=== PATIENT | male | born 1970 | race Hispanic/Latino ===

== ENCOUNTER → 2019-02-16 | Day surgery (SDC) | payer OTHER ==
[2019-02-15 16:23] LABS: BASOPHILS % 0.6 % (0.0-1.0); EOSINOPHILS # (AUTO) 0.1 (0.0-0.4); EOSINOPHILS % 1.6 % (0.0-6.0); HEMATOCRIT 52.1 % (38.2-49.6); HEMOGLOBIN 16.8 g/dL (14.0-18.0); LYMPHOCYTES # (AUTO) 2.6 (1.0-3.2); LYMPHOCYTES % 36.7 % (18.0-39.1); MEAN CORPUSCULAR HEMOGLOBIN 31.2 pg (28-32); MEAN CORPUSCULAR HGB CONC 32.2 g/dL (31-35); MEAN CORPUSCULAR VOLUME 96.7 fL (81-99); MONOCYTES # (AUTO) 0.6 (0.2-0.8); MONOCYTES % 7.9 % (4.4-11.3); NEUTROPHILS # (AUTO) 3.8 (2.1-6.9); NEUTROPHILS % 52.9 % (38.7-80.0); PLATELET COUNT 200 x10e3/uL (140-360); RED BLOOD COUNT 5.39 x10e6/uL (4.3-5.7); RED CELL DISTRIBUTION WIDTH 12.4 % (11.7-14.4)
[2019-02-15 16:24] LABS: INR 0.93
[2019-02-15 16:34] LABS: ALANINE AMINOTRANSFERASE 43 IU/L (0-55); ALBUMIN 4.3 g/dL (3.5-5.0); ALBUMIN/GLOBULIN RATIO 1.1 (0.8-2.0); ALKALINE PHOSPHATASE 82 IU/L (40-150); ANION GAP 16.2 mmol/L (8-16); BLOOD UREA NITROGEN 14 mg/dL (7-26); BUN/CREATININE RATIO 15 (6-25); CALCIUM 9.9 mg/dL (8.4-10.2); CARBON DIOXIDE 25 mmol/L (22-29); CHLORIDE 101 mmol/L (98-107); CREATININE, SERUM 0.95 mg/dL (0.72-1.25); EST GLOMERULAR FILTRATION RATE > 60 ML/MIN (60-); GLUCOSE 82 mg/dL (74-118); POTASSIUM 4.2 mmol/L (3.5-5.1); SODIUM 138 mmol/L (136-145)
[2019-02-16] VITALS (17 sets, daily range): BP systolic 119–189; BP diastolic 63–119
[~2019-02-16] VITALS: Ht 180.3 cm; Wt 95.3 kg
[~2019-02-16] MED LIST: ASPIRIN 325 MG TAB ONE; ATORVASTATIN CA20 MG PO; CELEBREX100 MG PO; FENTANYL CITRATE/PF 100MCG/2 ML INJ ONE; HEPARIN SOD/SOD CHLORIDE 2,000 ML ONE; IOPAMIDOL 370 MG/ML 200 ML INFUS..BTL INJ ONE; LIDOCAINE HCL 2% LOCAL 20 ML VIAL ONE; MIDAZOLAM HCL 2 MG/2 ML VIAL ONE; SODIUM CHLORIDE 0.9% 1000ML 1,000 ML ONE; TICAGRELOR 90 MG TABLET ONE; VERAPAMIL HCL 2.5 MG/ML 2 ML VIAL ONE
--- OUTSIDE RECORDS SUMMARY | 2019-02-16 08:41 | XMS REPORT | Clinical Summary ---
Author Author ANDRA [facility] CenterMoqizone HoldingYak[facility] Organization [facility] Address Unknown Phone Unavailable Care Team Providers Care Ham Pumper Name Role Phone Carson Butcher PCP Allergies Comments Active Allergy Reactions Severity Noted Date As a kid Penicillins Other (See 10/11/2017 Comments) Medications End Date Status Medication Sig Dispensed Refills Start Date Active QUEtiapine (SEROQUEL) 100 Take 100 mg 0 MG tablet by mouth nightly. Active rivaroxaban (XARELTO) 10 Take 1 tablet 30 tablet 0 10/21/201 mg Tab tablet (10 mg total) 7 by mouth daily with dinner. Active apixaban (ELIQUIS) 5 mg Take 1 tablet 74 tablet 0 11/24/201 Tab tablet (5 mg total) 8 by mouth 2 (two) times daily Take 2 tablets twice a day for 7 days then 1 tablet twice a day.. Active Problems Problem Noted Date Osteoarthritis of right ankle, unspecified osteoarthritis type 10/21/2017 Osteoarthritis of right ankle 10/19/2017 Social History Date Tobacco Use Types Packs/Day Years Used Never Smoker Smokeless Tobacco: Never Used Alcohol Use Drinks/Week oz/Week Comments Yes 4 Cans of 2.4 beer Sex Assigned at Date Recorded Not on file Industry Job Start Date Occupation Not on file Not on file Not on file Travel End Travel History Travel Start No recent travel history available. Last Filed Vital Signs Not on file Plan of Treatment Not on file Implants Device Identifier Shelf Expiration Date Model / Serial / Lot Implanted Type Area Manufactur er 10/03/[id number] / / [id number] Inbone Tibial Top Stem Plasma [place] Right: Ankle EDDI GONZALES Implanted: Qty: 1 on 10/19/2017 by GRP:Bismark Vanegas MD MED TECH 01/29/[id number] / / [id number] Inbone Tibial Mid Stem Plasma [place] Right: Ankle [employer] Implanted: Qty: 1 on 10/19/2017 by GRP:Bismark Vanegas MD MED TECH 05/10/[id number] / / [id number] Inbone Tibial Base Stem Plasma Right: Ankle [place] [place] GRP:EDDI Implanted: Qty: 1 on 10/19/2017 by MED Bismark Snowden MD 09/11/[id number] / / [id number] Inbone Tibial Tray Plasma [place] Right: Ankle [employer] Implanted: Qty: 1 on 10/19/2017 by GRP:Bismark Vanegas MD MED TECH 09/11/2025 [id number] / / [id number] Inbone Talar Stem Plasma [place] Right: Ankle [employer] Implanted: Qty: 1 on 10/19/2017 by GRP:Bismark Vanegas MD MED TECH 09/25/[id number] / / [id number] Inbone Talar Dome Sulcus, Plasma Right: Ankle [employer] [place] GRP:EDDI Implanted: Qty: 1 on 10/19/2017 by MED TECH Bismark Schultz MD 06/22/2018 [id number] / / [id number] Inbone Polyinsert Ankle [employer] Implanted: Qty: 1 on 10/19/2017 by GRP:Bismark Vanegas MD MED TECH [id number] / / Darco Headed Screw 6.5x50mm Ankle [employer] Implanted: Qty: 1 on 10/19/2017 by GRP:Bismark Vanegas MD MED TECH [id number] / / Darco Headed Screw 7.5 X 50 Right: Ankle [employer] Implanted: Qty: 1 on 10/19/2017 by GRP:Bismark Vanegas MD MED TECH Results Not on fileafter 02/15/2018 Insurance Payer Benefit Subscriber ID Type Phone Address Plan / Group [facility] xxxxxxxx [employer] CHOICE POS Advance Directives For more information, please contact: [address] [address] Date Inactivated Comments Code Status Date Activated 10/22/2017 6:09 PM Full Code 10/19/2017 10:31 AM This code status was determined by: Patient
--- OUTSIDE RECORDS SUMMARY | 2019-02-16 08:41 | XMS REPORT ---
Author Author [facility] Address Unknown Phone Unavailable Care Team Providers Care Asphalt Paving Supervisor Name Role Phone Wyatt Nick Unavailable Unavailable ANN CORNEJO Unavailable Unavailable JEANNIE FALL Unavailable Unavailable Problems This patient has no known problems. Allergies, Adverse Reactions, Alerts This patient has no known allergies or adverse reactions. Medications This patient has no known medications. Results Test Description Test Time Test Comments Text Results Atomic Results Result Comments Basic Metabolic Panel 2019-02-02 15:57:00 Serum or plasma sodium measurement (moles/volume) (test iqnh=3646-0) 141 mmol/L 136-145 Potassium [Moles/volume] in Serum or Plasma (test usmn=0865-3) 4.0 mmol/L 3.5-5.1 Chloride [Moles/volume] in Serum or Plasma (test hcrg=1158-9) 107 mmol/L 98-107 Carbon dioxide, total [Moles/volume] in Serum or Plasma (test hqbu=3110-0) 26 mmol/L 21-32 Glucose [Mass/volume] in Serum or Plasma (test snep=5668-4) 86 mg/dL 74-106 Urea nitrogen [Mass/volume] in Serum or Plasma (test rlsl=5007-9) 18 mg/dL 7-18 Creatinine [Mass/volume] in Serum or Plasma (test kkon=2033-5) 0.96 mg/dL 0.55-1.3 Glomerular Filtration Rate (test code=GFR) 84 mL =/>90 FOR CHRONIC KIDNEY DISEASE: GFR STAGE DESCRIPTION=/>90 STAGE 1 NORMAL--OR-- MINIMAL KIDNEY DAMAGE WITH NORMAL GFR 60-89 STAGE 2 MILD DECREASE IN GFR 30-59 STAGE 3 MODERATE DECREASE IN GFR 15-29 STAGE 4 SEVERE DECREASE IN GFR <15 STAGE 5 KIDNEY FAILURE The Glomerular Filtration Rate (GFR) has been calculated using the IDMS-Traceable MDRD Study Equation. Calcium [Mass/volume] in Serum or Plasma (test yjnj=98847-0) 8.6 mg/dL 8.5-10.1 Comment Bed:20 Test Ordered to Rule Out VTE/DVT? NLiver (Hepatic) Function 2019-02-02 15:57:00* Test Item Value Reference Range Comments Aspartate aminotransferase [Enzymatic activity/volume] in Serum or Plasma by With P-5 (test slna=21674-4) 31 U/L 15-37 Alanine aminotransferase [Enzymatic activity/volume] in Serum or Plasma by With P-5'- (test extv=0652-0) 58 U/L 12-78 Alkaline phosphatase [Enzymatic activity/volume] in Serum or Plasma (test dhtk=7492-0) 80 U/L 45-117 Bilirubin.total [Mass/volume] in Serum or Plasma (test awbd=1384-3) 0.6 mg/dL 0.2-1.0 Bilirubin.direct [Mass/volume] in Serum or Plasma (test izqc=0695-2) 0.1 mg/dL 0-0.2 Protein [Mass/volume] in Serum or Plasma (test ydsj=4755-1) 8.0 g/dL 6.4-8.2 Albumin [Mass/volume] in Serum or Plasma by Bromocresol purple (BCP) dye binding meth (test uwol=12893-3) 4.2 g/dL 3.4-5.0 Globulin (test code=GLOB) 3.8 g/dL 2.3-3.5 Albumin/Globulin Ratio (test code=A/G) 1.1 1.1-1.8 Comment Bed:20 Test Ordered to Rule Out VTE/DVT? NTroponin I.cardiac [Mass/volume] in Serum or Vxliib7471-44-16 15:57:00* Test Item Value Reference Range Comments Troponin I.cardiac [Mass/volume] in Serum or Plasma (test gfqj=53025-6) <0.02 ng/mL 0.0-0.045 Comment Bed:20 Test Ordered to Rule Out VTE/DVT? NNatriuretic peptide.B prohormone N-Terminal [Mass/volume] in Serum or Eydsxt0829-82-47 15:57:00* Test Item Value Reference Range Comments Natriuretic peptide.B prohormone N-Terminal [Mass/volume] in Serum or Plasma (test pvny=02897-8) 48 pg/mL <125 Comment Bed:20 Test Ordered to Rule Out VTE/DVT? NMagnesium [Mass/volume] in Serum or Ezutpa1947-52-47 15:57:00* Test Item Value Reference Range Comments Magnesium [Mass/volume] in Serum or Plasma (test npbo=21139-9) 2.3 mg/dL 1.8-2.4 Comment Bed:20 Test Ordered to Rule Out VTE/DVT? NComplete blood count (CBC) with automated white blood cell (WBC) oemnsiyuznji9931-04-70 15:51:00* Test Item Value Reference Range Comments White blood cell count (test esdt=PTR7792) 8.8 4.3-10.9 Blood erythrocytes count (number/volume) (test juwv=51524-0) 5.09 M/ul 4.33-5.43 Hemoglobin measurement (test radn=SUJ1280) 16.2 g/dL 13.6-17.9 Blood hematocrit (volume fraction) (test oisn=75345-9) 47.2 % 39.6-49.0 MCV (test usuo=EAP5403) 92.9 fL 80-100 31.9 MCHC (test code=MCHC) 34.4 g/dL 32.0-36.0 Platelets (test code=PLT) 241 152-406 Red Cell Distribution Width (test code=RDW) 13.3 % 12.1-15.2 Blood platelet mean volume (test glrt=75441-4) 7.9 fL 7.6-11.3 Neutrophils % (test code=JOY%) 65.6 % 41.7-73.7 Lymphocytes/leuk NFr Bld (test sktb=03919-5) 25.2 % 15.3-44.8 Monocyte percentage (test zqum=6277-0) 8.0 % 3.3-12.3 Eosinophil % (test cxuv=881-2) 0.8 % 0-4.4 Basophil % (test dhau=49337-1) 0.4 % 0-1.3 Absolute neutrophil count (test itne=723-4) 5.8 1.8-8.0 Absolute lymphocyte count (test uhso=34095-2) 2.2 0.7-4.9 Absolute monocyte count (test wicm=281-2) 0.7 0.1-1.3 Absolute Eosinophils (test code=EOA) 0.1 0-0.5 Absolute Basophils (test code=BASA) 0.0 0-0.5 Prothrombin time (PT) with international normalized ratio (INR)2019-02-02 15:50:00* Test Item Value Reference Range Comments PT Prothrombin Time (test code=PROTIME) 12.0 s 9.5-12.5 INR in Blood by Coagulation assay (test mimy=03531-9) 1.02 Monitor pts using INR value (not prothrombin time) INR Coumadin Therapy: Low Range (prophylaxis) 2.0-3.0 High Range (high risk of clot formation) 2.5-3.5 NChest Single [id number] 15:38:00[facility] [place] [address] RADIOLOGY SERVICES REPORT Name: MIGEL VENTURA Acct Number: [id number] :1970 Age:48 Sex:M Ord Phys: Telly Cadena Unit Number: [id number] [facility] Dr: LÁZARO Status: REG ER ER Exam Date: 02/02/19 EXAM DESCRIPTION: [facility] Single View02/02/2019 3:31 pm CLINICAL HISTORY: Chest pain COMPARISON: none FINDINGS: The lungs appear clear of acute infiltrate. The heart is normal size IMPRESSION: No acute abnormalities displayed Signed By: Eleazar Herbert MD Signed AT: 02/02/19 1538 [place], [employer] IN OR/30 MINUTE [id number] 17:07:00Reason for exam:->right infinity total ankle replacement calcaneal oseotomyPROCEDURE PERFORMED IN O.R. - PLEASE REFER TO THE INTRAOPERATIVE REPORT. , CHEST WITH IV CONTRAST- PE TEST DESIGN 2017-11-24 21:48:00Reason for exam:->LEG PAINReason for exam:->CHEST PAINWhat is the patient's sedation requirement?->No SedationFINAL REPORT TECHNIQUE: CT scan of the chest WITH intravenous contrast. Dose modulation, iterative reconstruction, and/or weight-based adjustment of the mA/kV was utilized to reduce the radiation dose to as low as reasonably achievable. INDICATION: 47-year-old man with leg pain and chest pain. CO MPARISON: None. FINDINGS: LINES/TUBES: None. PULMONARY ARTERIES: Proximal to t he bifurcation of the main pulmonary artery, the main pulmonary artery is 2.3 cm in diameter. No filling defects within the pulmonary arteries to suggest pulmo nary embolus. LUNGS AND AIRWAYS: The lungs and airways are normal without focal abnormality. PLEURA: The pleural spaces are clear. HEART AND MEDIASTINUM: The vi sualized thyroid gland is normal. No significant mediastinal, hilar, or axillary lymphadenopathy. The heart and pericardium are within normal limits. SOFT TISSU ES AND BONES: Unremarkable. UPPER ABDOMEN: Decreased attenuation of the liver, c onsistent with hepatic steatosis. The gastric fundus is wrapped around the dista l esophagus above the diaphragm. IMPRESSION:No pulmonary emboli or other acute abnormalities in the chest. Findings at the gastroesophageal junction may repres ent changes from prior fundoplication, which has herniated above the diaphragm, versus paraesophageal hiatal hernia. Signed: Fer Johnort Verified D ate/Time: 11/24/2017 21:48:27 Reading Location: [facility] C013 Consult Reading Ro om , CHEST, 1 VIEW, NON [id number] 14:44:00Reason for exam:->LEG PAINReason for exam:->CHEST PAINFINAL REPORT Chest one view INDICATION: Leg pain, chest pain COMPARISON: None available IMPRESSION: There is no focal consolidation, vascular congestion, pleural effusion, or pneumothorax. Heart size is at the upper limit of normal. The aorta is mildly ectatic/tortuous. There are degenerative spine changes. Signed: Jann Lezamaeport Verified Date/Time: 11/24/2017 14:44:51 Reading Location: [facility] B1 C013W Consult Reading Room B-TYPE NATRIURETIC FACTOR (BNP)2017-11-24 14:35:00* Test Item Value Reference Range Comments B-TYPE NATRIURETIC PEPTIDE (BEAKER) (test isjt=065) 40 pg/mL 0-100 CREATINE KINASE (CK), TOTAL AND [id number] 14:30:00* Test Item Value Reference Range Comments CREATINE KINASE TOTAL (BEAKER) (test jxya=648) 223 U/L 29-200 CREATINE KINASE-MB (BEAKER) (test uodc=235) 1.0 ng/mL 0.0-6.6 CREATINE KINASE-MB INDEX (BEAKER) (test zifx=068) 0.4 % CK-MB Reference Range:<6.7 Normal6.7-10.0 Borderline>10.0 Abnormal TROPONIN [id number] 14:30:00* Test Item Value Reference Range Comments TROPONIN I (BEAKER) (test kdou=644) 0.01 ng/mL 0.00-0.03 Troponin I (TnI) levels must be interpreted in the context of the presenting sym ptoms and the clinical findings. Elevated TnI levels indicate myocardial damage, but are not specific for ischemic heart disease. Elevated TnI levels are seen i n patients with other cardiac conditions (including myocarditis and congestive h eart failure), and slight TnI elevations occur in patients with other conditions , including sepsis, renal failure, acidosis, acute neurological disease, and per sistent tachyarrhythmia.[id number] 14:23:00* Test Item Value Reference Range Comments MAGNESIUM (BEAKER) (test wksx=864) 2.1 mg/dL 1.6-2.6 BASIC METABOLIC [id number] 14:23:00* Test Item Value Reference Range Comments SODIUM (BEAKER) (test etqh=696) 141 meq/L 136-145 POTASSIUM (BEAKER) (test axoh=023) 4.1 meq/L 3.5-5.1 CHLORIDE (BEAKER) (test wyif=831) 106 meq/L 98-107 CO2 (BEAKER) (test wefc=679) 25 meq/L 22-29 BLOOD UREA NITROGEN (BEAKER) (test heyv=668) 13 mg/dL 7-21 CREATININE (BEAKER) (test mstr=172) 0.97 mg/dL 0.57-1.25 GLUCOSE RANDOM (BEAKER) (test unoh=470) 82 mg/dL 70-105 CALCIUM (BEAKER) (test hwzt=447) 9.4 mg/dL 8.4-10.2 EGFR (BEAKER) (test hgir=9334) 83 mL/min/1.73 sq m ESTIMATED GFR IS NOT ACCURATE CREATININE CLEARANCE IN PREDICTING GLOMERULAR FILTRATION RATE. ESTIMATED GFR IS NOT APPLICABLE FOR DIALYSIS PATIENTS. PT/[id number] 14:20:00* Test Item Value Reference Range Comments PROTIME (BEAKER) (test xflh=892) 14.1 seconds 11.7-14.7 INR (BEAKER) (test pteh=370) 1.1 <=5.9 PARTIAL THROMBOPLASTIN TIME (BEAKER) (test dkdx=731) 30.1 seconds 22.5-36.0 RECOMMENDED COUMADIN/WARFARIN INR THERAPY RANGESSTANDARD DOSE: 2.0 - 3.0 Inclu cheryle: PROPHYLAXIS for venous thrombosis, systemic embolization; TREATMENT for janneth ous thrombosis and/or pulmonary embolus.HIGH RISK: Target INR is 2.5-3.5 for pat ients with mechanical heart valves.CBC W/PLT COUNT & AUTO [id number] 12:44:00* Test Item Value Reference Range Comments WHITE BLOOD CELL COUNT (BEAKER) (test rswa=772) 5.9 K/ L 3.5-10.5 RED BLOOD CELL COUNT (BEAKER) (test kyvl=268) 4.98 M/ L 4.63-6.08 HEMOGLOBIN (BEAKER) (test wiog=962) 15.3 GM/DL 13.7-17.5 HEMATOCRIT (BEAKER) (test abuq=712) 48.2 % 40.1-51.0 MEAN CORPUSCULAR VOLUME (BEAKER) (test mtar=075) 96.8 fL 79.0-92.2 MEAN CORPUSCULAR HEMOGLOBIN (BEAKER) (test bjhc=518) 30.7 pg 25.7-32.2 MEAN CORPUSCULAR HEMOGLOBIN CONC (BEAKER) (test njkr=402) 31.7 GM/DL 32.3-36.5 RED CELL DISTRIBUTION WIDTH (BEAKER) (test auao=973) 12.5 % 11.6-14.4 PLATELET COUNT (BEAKER) (test wdlu=562) 175 K/CU MM 150-450 MEAN PLATELET VOLUME (BEAKER) (test buax=268) 10.2 fL 9.4-12.4 NUCLEATED RED BLOOD CELLS (BEAKER) (test imwh=695) 0 /100 WBC 0-0 NEUTROPHILS RELATIVE PERCENT (BEAKER) (test bjqn=295) 57 % LYMPHOCYTES RELATIVE PERCENT (BEAKER) (test wvtg=431) 30 % MONOCYTES RELATIVE PERCENT (BEAKER) (test ihtz=989) 10 % EOSINOPHILS RELATIVE PERCENT (BEAKER) (test mkyc=274) 2 % BASOPHILS RELATIVE PERCENT (BEAKER) (test aujr=351) 2 % NEUTROPHILS ABSOLUTE COUNT (BEAKER) (test uizc=705) 3.32 K/ L 1.78-5.38 LYMPHOCYTES ABSOLUTE COUNT (BEAKER) (test rfnx=841) 1.74 K/ L 1.32-3.57 MONOCYTES ABSOLUTE COUNT (BEAKER) (test ikyn=359) 0.58 K/ L 0.30-0.82 EOSINOPHILS ABSOLUTE COUNT (BEAKER) (test sftq=036) 0.09 K/ L 0.04-0.54 BASOPHILS ABSOLUTE COUNT (BEAKER) (test vjtu=447) 0.09 K/ L 0.01-0.08 IMMATURE GRANULOCYTES-RELATIVE PERCENT (BEAKER) (test oicv=7461) 1 % 0-1 BASIC METABOLIC [id number] 06:21:00* Test Item Value Reference Range Comments SODIUM (BEAKER) (test jlaf=987) 136 meq/L 136-145 POTASSIUM (BEAKER) (test vgyh=062) 4.2 meq/L 3.5-5.1 CHLORIDE (BEAKER) (test oirw=147) 105 meq/L 98-107 CO2 (BEAKER) (test lxzo=362) 23 meq/L 22-29 BLOOD UREA NITROGEN (BEAKER) (test xgsh=898) 10 mg/dL 7-21 CREATININE (BEAKER) (test mviq=673) 0.85 mg/dL 0.57-1.25 GLUCOSE RANDOM (BEAKER) (test ypob=104) 117 mg/dL 70-105 CALCIUM (BEAKER) (test kazy=950) 9.0 mg/dL 8.4-10.2 EGFR (BEAKER) (test illv=7034) 97 mL/min/1.73 sq m ESTIMATED GFR IS NOT ACCURATE CREATININE CLEARANCE IN PREDICTING GLOMERULAR FILTRATION RATE. ESTIMATED GFR IS NOT APPLICABLE FOR DIALYSIS PATIENTS. CBC (HEMOGRAM ONLY)2017-10-21 05:57:00* Test Item Value Reference Range Comments WHITE BLOOD CELL COUNT (BEAKER) (test jjcv=190) 10.5 K/ L 3.5-10.5 RED BLOOD CELL COUNT (BEAKER) (test rmda=060) 4.56 M/ L 4.63-6.08 HEMOGLOBIN (BEAKER) (test ibiv=862) 14.0 GM/DL 13.7-17.5 HEMATOCRIT (BEAKER) (test fure=406) 41.6 % 40.1-51.0 MEAN CORPUSCULAR VOLUME (BEAKER) (test isue=830) 91.2 fL 79.0-92.2 MEAN CORPUSCULAR HEMOGLOBIN (BEAKER) (test bmlh=727) 30.7 pg 25.7-32.2 MEAN CORPUSCULAR HEMOGLOBIN CONC (BEAKER) (test vcyf=999) 33.7 GM/DL 32.3-36.5 RED CELL DISTRIBUTION WIDTH (BEAKER) (test fcpt=261) 12.3 % 11.6-14.4 PLATELET COUNT (BEAKER) (test tgux=360) 213 K/CU MM 150-450 MEAN PLATELET VOLUME (BEAKER) (test nlzr=663) 9.7 fL 9.4-12.4 NUCLEATED RED BLOOD CELLS (BEAKER) (test jtju=010) 0 /100 WBC 0-0 CBC (HEMOGRAM ONLY)2017-10-20 05:26:00* Test Item Value Reference Range Comments WHITE BLOOD CELL COUNT (BEAKER) (test iwwh=442) 12.0 K/ L 3.5-10.5 RED BLOOD CELL COUNT (BEAKER) (test oahq=159) 4.73 M/ L 4.63-6.08 HEMOGLOBIN (BEAKER) (test gnwh=498) 14.6 GM/DL 13.7-17.5 HEMATOCRIT (BEAKER) (test ljsx=382) 43.8 % 40.1-51.0 MEAN CORPUSCULAR VOLUME (BEAKER) (test lpis=589) 92.6 fL 79.0-92.2 MEAN CORPUSCULAR HEMOGLOBIN (BEAKER) (test tprj=380) 30.9 pg 25.7-32.2 MEAN CORPUSCULAR HEMOGLOBIN CONC (BEAKER) (test bucn=601) 33.3 GM/DL 32.3-36.5 RED CELL DISTRIBUTION WIDTH (BEAKER) (test wecf=819) 12.2 % 11.6-14.4 PLATELET COUNT (BEAKER) (test vtpa=929) 237 K/CU MM 150-450 MEAN PLATELET VOLUME (BEAKER) (test jmov=183) 9.9 fL 9.4-12.4 NUCLEATED RED BLOOD CELLS (BEAKER) (test bhcf=684) 0 /100 WBC 0-0 [id number] 10:49:00* Test Item Value Reference Range Comments HEMOGLOBIN (BEAKER) (test vrkc=336) 15.7 GM/DL 13.7-17.5 PLATELET [id number] 10:49:00* Test Item Value Reference Range Comments PLATELET COUNT (BEAKER) (test dlyt=659) 227 K/CU MM 150-450
--- OUTSIDE RECORDS SUMMARY | 2019-02-16 08:41 | XMS REPORT | Clinical Summary ---
Author Author [facility] Address Unknown Phone Unavailable Care Team Providers Care Train Operator Name Role Phone Asked, No Pcp PCP Unavailable Allergies Comments Active Allergy Reactions Severity Noted Date As a child Penicillins 07/20/2018 Medications End Date Status Medication Sig Dispensed Refills Start Date Active celecoxib (CeleBREX) 200 Take 1 30 capsule 2 MG capsule capsule (200 8 mg total) by mouth daily. Active QUEtiapine (SEROquel) 100 Take 100 mg 0 MG tablet by mouth nightly. 12/06/2018 Discontinued traMADol (ULTRAM) 50 mg Take 1 tablet 30 tablet 0 tablet (50 mg total) 9 by mouth every 8 (eight) hours as needed for moderate pain for up to 30 days. 12/16/2018 HYDROcodone-acetaminophen Take 1 tablet 30 tablet 0 (NORCO) 5-325 mg per by mouth 9 tablet every 8 (eight) hours as needed for moderate pain for up to 10 days. Max Daily Amount: 3 tablets 12/27/2018 HYDROcodone-acetaminophen Take 1 tablet 25 tablet 0 (NORCO) 7.5-325 mg per by mouth 9 tablet every 4 (four) hours as needed for moderate pain for up to 5 days. Max Daily Amount: 6 tablets 01/21/2019 promethazine (PHENERGAN) Take 1 tablet 10 tablet 0 25 MG tablet (25 mg total) 9 by mouth every 6 (six) hours as needed for nausea or vomiting for up to 30 days. Active Problems Problem Noted Date Corporo-venous occlusive erectile dysfunction 12/27/2017 Osteoarthritis of right ankle 10/19/2017 Arthritis of ankle 06/12/2017 Encounters Care Team Description Date Type Specialty Bismark Schultz MD 01/17/2019 Abstract Orthopedic Surgery Bismark Schultz MD Retained orthopedic hardware (Primary Dx); S/P ankle joint replacement, right 01/08/2019 Office Visit Orthopedic Surgery Bismark Schultz MD REMOVAL OF HARDWARE RIGHT CALCANEUS 12/22/2018 Surgery Orthopedic Surgery Erwin Kayeiam, PROFESSIONAL ADVISOR 12/22/2018 Anesthesia Orthopedic Surgery Event Bismark Schultz MD 12/22/2018 Hospital Orthopedic Surgery Encounter [facility] Pain of right heel (Primary Dx); Retained orthopedic hardware 12/20/2018 Orders Only Orthopedic Surgery Bismark Schultz MD Preop testing (Primary Dx) 12/11/2018 Pre-Admit Pre-Admission Testing Testing Appointment Bismark Schultz MD Retained orthopedic hardware (Primary Dx); Pain of right heel 12/06/2018 Office Visit Orthopedic Surgery [facility] 12/06/2018 Orders Only Orthopedic Surgery Bismark Schultz MD S/P ankle joint replacement, right (Primary Dx); Primary osteoarthritis of right ankle 10/05/2018 Office Visit Orthopedic Surgery Bismark Schultz MD S/P ankle joint replacement, right (Primary Dx) 07/20/2018 Office Visit Orthopedic Surgery [facility] 07/13/2018 Orders Only Orthopedic Surgery after 02/15/2018 Social History Date Tobacco Use Types Packs/Day Years Used Never Smoker Smokeless Tobacco: Never Used Alcohol Use Drinks/Week oz/Week Comments Yes 10 Standard 6.0 week drinks or equivalent Alcohol Habits Answer Date Recorded How often do you have a drink containing alcohol? Never 12/11/2018 How many drinks containing alcohol do you have on Not asked a typical day when you are drinking? How often do you have six or more drinks on one Not asked occasion? Sex Assigned at Date Recorded Not on file Industry Job Start Date Occupation Not on file Not on file Not on file Travel End Travel History Travel Start No recent travel history available. Last Filed Vital Signs Time Taken Vital Sign Reading 12/22/2018 11:30 AM OIL EXPELLER Blood Pressure 135/90 12/22/2018 11:30 AM OIL EXPELLER Pulse 62 12/22/2018 9:59 AM OIL EXPELLER Temperature 36.4 C (97.5 F) 12/22/2018 9:59 AM OIL EXPELLER Respiratory Rate 16 12/22/2018 11:30 AM OIL EXPELLER Oxygen Saturation 98% - Inhaled Oxygen - Concentration 12/22/2018 7:58 AM OIL EXPELLER Weight 95.6 kg (210 lb 12.8 oz) 12/22/2018 7:58 AM OIL EXPELLER Height 180.3 cm (5' 11") 12/22/2018 7:58 AM OIL EXPELLER Body Mass Index 29.4 Plan of Treatment Care Team Description Date Type Specialty Bismark Schultz MD [address] [facility] [address] [place] [address] [phone] 05/03/2019 Office Visit Orthopedic Surgery Health Maintenance Due Date Last Done Comments INFLUENZA VACCINE 05/24/2019 Procedures Comments Procedure Name Priority Date/Time Associated Diagnosis REMOVAL, IMPLANT OR 12/22/2018 Retained orthopedic HARDWARE, ANKLE 1:45 PM OIL EXPELLER hardware Right foot pain Case Notes LARGE C-ARM Special Needs SUPINE POSITION, DARCO 6.5 SCREWS, LARGE C-ARM OR FL > 1 HOUR Routine 12/22/2018 9:01 AM OIL EXPELLER OH AN ELECTIVE Routine 12/22/2018 SUPRAGLOTTIC AIRWAY 8:33 AM OIL EXPELLER Procedure Note - Kwasi Rojo CRNA - 12/22/2018 8:33 AM OIL EXPELLER Airway Date/Time: 12/22/2018 8:14 AM Performed by: Kwasi Rojo CRNA Authorized by: Dank Clifton MD Location: OR Urgency: Elective Difficult Airway: No Preoxygena chilango with 100% O2: Yes C-spine Precaution s Maintained Throughout : Yes Mask Ventilatio n: Easy mask Final Airway Type: Supraglott ic airway Final LMA: I-Gel LMA Size: 5 Number of Attempts at Approach: 1 ECG PRE/POST OP Routine 12/11/2018 Preop testing 2:16 PM OIL EXPELLER ESTIMATED GFR Routine 12/11/2018 2:06 PM OIL EXPELLER BASIC METABOLIC PANEL Routine 12/11/2018 Preop testing 2:06 PM OIL EXPELLER XR ANKLE 3+ VW RIGHT Routine 10/05/2018 S/P ankle joint 3:09 PM OIL EXPELLER replacement, right Primary osteoarthritis of right ankle XR ANKLE 3+ VW RIGHT Routine 07/20/2018 S/P ankle joint 1:15 PM CDT replacement, right after 02/15/2018 Results * OR [place] > I Hour (12/22/2018 9:01 AM OIL EXPELLER) Narrative Performed At EXAMINATION:OR FL> 1 HOUR [facility] C-arm fluoroscopy was requested in OR. Location:[facility] - OR1 Procedure:Right Calcaneus Removal of Hardware Start Time:714 End Time: 0900 Fluoro Time:3 SEC Dose (mGy): 0.18 mGy Tech(s): jm IMPRESSION: Separate operative report will be issued by the physician performing the procedure. [id number] Procedure Note Hm Interface, Radiology Results Incoming - 12/22/2018 3:27 PM OIL EXPELLER EXAMINATION: OR FL > 1 HOUR C-arm fluoroscopy was requested in OR. Location: [facility] - OR1 Procedure: Right Calcaneus Removal of Hardware Start Time: 714 End Time: 00 Fluoro Time: 3 SEC Dose (mGy): 0.18 mGy Tech(s): jm IMPRESSION: Separate operative report will be issued by the physician performing the procedure. [id number] Performing Organization Address City/[facility] Phone Number [employer] [address] [place] [address] * ECG Pre/Post Op (12/11/2018 2:16 PM OIL EXPELLER) Ventricular rate 70 [facility] Atrial rate 70 [facility] OH interval 136 [facility] QRSD interval 86 [facility] QT interval 396 [facility] QTC interval 427 [facility] P axis 1 30 [facility] QRS axis 1 83 [facility] T wave axis 5 [facility] EKG impression Normal sinus rhythm-Normal [facility] MUSE ECG-No previous ECGs available- Narrative Performed At Performing Organization Address [facility] Phone Number [employer] [address] [place] [address] * Estimated GFR (12/11/2018 2:06 PM OIL EXPELLER) Estimated GFR >=90 mL/min/1.73 m2 STEF RASTAFARI Comment: HOSPITAL CatergoryUnitsInte rpretation G1 >=90 Normal or high G2 60-89Mildly decreased Q0i40-29 Mildly to moderately decreased S1i42-87 Moderately to severely decreased G4 15-29Severely decreased G5 <15Kidney failure The eGFR was calculated using the Chronic Kidney Disease Epidemiology Collaboration (CKD-EPI) equation. Interpretation is based on recommendations of the National Kidney Foundation-Kidney Disease Outcomes Quality Initiative (NKF-KDOQI) published in 2014. Specimen Plasma specimen Performing Organization Address City/[facility] Phone Number [facility] DEPARTMENT OF [address] [place] [phone] PATHOLOGY AND GENOMIC MEDICINE [address] * Basic metabolic panel (12/11/2018 2:06 PM OIL EXPELLER) Sodium 142 135 - 148 mEq/L [facility] Potassium 3.9 3.5 - 5.0 mEq/L [facility] Chloride 101 98 - 112 mEq/L [facility] CO2 27 24 - 31 mEq/L [facility] Anion gap 14@ANIO 7 - 15 mEq/L [facility] BUN 15 6 - 20 mg/dL [facility] Creatinine 0.98 0.70 - 1.20 mg/dL [facility] Glucose 79 65 - 99 mg/dL [facility] Calcium 9.5 8.3 - 10.2 mg/dL [facility] Specimen Plasma specimen Performing Organization Address [facility] Phone Number [facility] DEPARTMENT OF [address] [place] [phone] PATHOLOGY AND [facility] MEDICINE [address] * XR Ankle 3+ Vw Right (10/05/2018 3:09 PM OIL EXPELLER) Only the most recent of 2 results within the time period is included. Narrative Performed At [facility] 3 weightbearing views the right ankle been reviewed and demonstrate good alignment of the inbone prosthesis.There is a small amount of lateral gutter osteophyte formation.Calcaneal screws are somewhat prominent. Otherwise see no significant abnormality or sign of implant loosening. Performing Organization Address City/[facility]/Zipcode Phone Number [facility] [address] [place] [address] after 02/15/2018 Insurance Payer Benefit Subscriber ID Type Phone Address Plan / Group [facility] UMR xxxxxxxx PPO [facility] Advance Directives Patient has advance care planning documents on file. For more information, carolyn connelly contact: Stef Murray [address] [place] [address]
--- NOTE | 2019-02-16 12:05 | NUR ---
1206 Received in Time Recorder recovery Rm #[id number] Report form Stephy LOPEZ [facility] with stent placement. via rt TR band approach.Oozing at site Dr Perez at bedside. Add 2cc air to TR Band by Dr Perez Bleeding held. Family at bedside. Instructed on restrictions to keep rt arm still.Tolerating po intake. ds/rn
--- NOTE | 2019-02-16 12:07 | NUR ---
1207 back to baseline orientation. Respiration shallow and regular 98% on room air. Abdomen soft and non tender denies necessity to defecate or urinate.lefthand iv site w/o s/s infiltration Site w/o s/s infiltration.Monitor SR w/o ectopy Family at bedside.Mother Lynette at bedside with daughter. Explained POC and DC instructions RX given to family for Brilinta and coupon card. Rt TR band site w/w s/s bleeding at this time Titration to be started at 1330.Adequate radial pulse. ds/rn
--- NOTE | 2019-02-16 13:30 | NUR ---
1330 TR band titration initiated 15cc balloon 1330 -2cc positive 13cc no sign pain,pallor,or bleeding 1345 -2cc positive 11cc no sign pain,pallor,or bleeding 1400 -2cc positive 9cc no sign pain,pallor,or bleeding 1415 -2cc positive 7cc no sign pain pallor,or bleeding 1430 -2cc positive 5cc no sign pain pallor ,or bleeding 1445 -2cc positive 3cc no sign pain pallor,or bleeding 1500 tr band off stasis achieved Coban dressing and splint in place no issues pain,pallor pressure or dysrhythmia. Radial pulse adequate.Explained dc plans understands precaution and importance of followup care scar/sumeet
--- NOTE | 2019-02-16 15:30 | NUR ---
1530 Tr BAND completed titrated. Coban dressing placed with 2x2 gauze. Positive radial pulse no gross issues with pain pallor pressure or pain.Remains NSR Tolerating po intake. called Dr Reardon and Dr Iraheta. pt wanting dc at 4pm. MD preferences 6pm after 5pm dose Brilinta to be given. Pt and family agreed Copies of DC papers given to Family. scar/rn
--- NOTE | 2019-02-16 16:59 | NUR ---
1700 ambulated to bathroom Void qs tolerated well Rt arm with wrist splint to TR band site health w/o gross signs pain,pallor,pressor,or bleeding.Denies CO Cp or SOB 5pm dose Brilinta given po 90mg Family has RX for home care, ds/rn
--- NOTE | 2019-02-16 17:52 | NUR ---
1750 Dr. Perez here recheck pt and explained outcomes and POC with precautions. Rt Tr band site remains intact with wrist brace no gross signs pain pallor pressure or bleeding. Dressed and escorted to car per Moises RN. Iv removed site w/o s/s infiltration Coban and 2x2 [address]. Denies co of CP or SOB aware of importance of f/o care and continue new medications. Back to baseline tolerating po intake.Has copies of dc plans ds/rn
--- NOTE | 2019-03-05 12:12 | Operative Report ---
DATE OF PROCEDURE: 02/16/2019 SURGEON: Murpyh Worley MD CARDIAC CATHETERIZATION REPORT INDICATION FOR PROCEDURE: Chest pain. Positive stress test. Coronary artery disease. PROCEDURE PERFORMED: PCI to the right posterolateral branch with drug-eluting stent x1. PROCEDURE DETAILS: Diagnostic angiography was performed by Dr. Ginny Muhammad. Please see her procedure note for details of the diagnostic angiography procedure. After coronary angiography was completed, I reviewed the images and discussed the case with primary defect repairer glassware, Dr. Ginny Muhammad and we jointly decided to proceed with PCI of the right PLB system. For PCI of the right PLB, a 6-Citizen Of [place] JR4 guide was used which provided adequate support. Lesion was crossed with some difficulty using Runthrough wire. We had difficulty crossing the lesion with 2.0 balloon and with some difficulty, a 1.5 x 8 mm balloon was able to cross the lesion. We proceeded to pre-dilate the lesion with the said balloon followed by 2.5 x 12 mm balloon. This resulted in good pre-dilation and we decided to proceed with PCI of the lesion using Synergy 2.75 x 16 mm drug-eluting stent. This provided an excellent angiographic result without any significant dissection, thrombus, or spasm. All catheters were removed over a wire. Access site was closed using a TR band. ESTIMATED BLOOD LOSS: 20 mL. GRAFTS AND IMPLANTS: Synergy 2.75 x 16 mm drug-eluting stent. SPECIMEN REMOVED: None. COMPLICATIONS: None. FINAL RECOMMENDATIONS: 1. Continue optimal medical therapy and risk factor control. 2. Continue aspirin 81 mg daily and ticagrelor 90 mg b.i.d. for at least one year followed by aspirin 81 mg daily for life. 3. Follow up in clinic with Dr. Ginny Muhammad two weeks post procedure. Murphy Worley MD KVP/MODL /[id number]
== END | disposition home or self-care (01) ==
LOC: CATH LAB 08:30
PROVIDERS: ATTEND Internal Medicine
DX: I25.10 Atherosclerotic heart disease of native coronary artery without angina pectoris (principal); R94.39 Abnormal result of other cardiovascular function study; R55 Syncope and collapse; I10 Essential (primary) hypertension; E78.5 Hyperlipidemia, unspecified; R06.09 Other forms of dyspnea; Z88.0 Allergy status to penicillin; Z01.812 Encounter for preprocedural laboratory examination; Z96.652 Presence of left artificial knee joint; Z82.49 Family history of ischemic heart disease and other diseases of the circulatory system
CPT/HCPCS: 36415; 80053; 85025; 85610; 92928; 93458; C1725 ×2; C1769; C1874; C1887 ×2; J2001; J2250; J7030; Q9967

== ENCOUNTER → 2020-01-02 | Day surgery (SDC) | payer BC ==
[2019-12-28 10:24] LABS: BASOPHILS % 0.6 % (0.0-1.0); EOSINOPHILS # (AUTO) 0.1 (0.0-0.4); EOSINOPHILS % 1.3 % (0.0-6.0); HEMATOCRIT 45.6 % (38.2-49.6); HEMOGLOBIN 15.2 g/dL (14.0-18.0); LYMPHOCYTES # (AUTO) 2.1 (1.0-3.2); LYMPHOCYTES % 28.7 % (18.0-39.1); MEAN CORPUSCULAR HEMOGLOBIN 32.7 pg (28-32); MEAN CORPUSCULAR HGB CONC 33.3 g/dL (31-35); MEAN CORPUSCULAR VOLUME 98.1 fL (81-99); MONOCYTES # (AUTO) 0.6 (0.2-0.8); MONOCYTES % 8.1 % (4.4-11.3); NEUTROPHILS # (AUTO) 4.4 (2.1-6.9); NEUTROPHILS % 60.9 % (38.7-80.0); PLATELET COUNT 211 x10e3/uL (140-360); RED BLOOD COUNT 4.65 x10e6/uL (4.3-5.7); RED CELL DISTRIBUTION WIDTH 12.2 % (11.7-14.4)
[2019-12-28 10:41] LABS: INR 1.02
[2019-12-28 10:47] LABS: ALANINE AMINOTRANSFERASE 27 IU/L (0-55); ALBUMIN 4.1 g/dL (3.5-5.0); ALBUMIN/GLOBULIN RATIO 1.2 (0.8-2.0); ALKALINE PHOSPHATASE 64 IU/L (40-150); ANION GAP 11.2 mmol/L (8-16); BLOOD UREA NITROGEN 17 mg/dL (7-26); BUN/CREATININE RATIO 17 (6-25); CALCIUM 9.2 mg/dL (8.4-10.2); CARBON DIOXIDE 30 mmol/L (22-29); CHLORIDE 103 mmol/L (98-107); CREATININE, SERUM 1.02 mg/dL (0.72-1.25); EST GLOMERULAR FILTRATION RATE > 60 ML/MIN (60-); GLUCOSE 109 mg/dL (74-118); POTASSIUM 4.2 mmol/L (3.5-5.1); SODIUM 140 mmol/L (136-145)
[2020-01-02] VITALS (11 sets, daily range): BP systolic 100–116; BP diastolic 40–77
[~2020-01-02] VITALS: Ht 180.3 cm; Wt 93.0 kg
[~2020-01-02] MED LIST changes: +AMLODIPINE BES2.5 MG; -ASPIRIN 325 MG TAB ONE; +CLOPIDOGREL75 MG PO; +ELIQUIS5 MG PO; +FLUOXETINE HCL10 MG PO; +HEPARIN SOD (PORCINE) 1000 UNIT/ML 30ML ONE; +METOPROLOL SUC100 MG PO; +QUETIAPINE FUMA25 MG PO; +RANEXA1000 MG; -TICAGRELOR 90 MG TABLET ONE
--- NOTE | 2020-01-02 14:45 | NUR ---
1445p bedside report received from JOHN De Leon. Identifier x2.Alert oriented and appropriate, PERRLA, respirations even and unlabored to room air. Pulses x4 extremities equal and strong. Pedal pulses PT/DP X4 . Cap fill brisk < 3 sec. Rt TR band.site health No gross issues pain,pallor pressure or dysrhythmia. TR band decreased at 1635 and dc today if stable. Phoned family to return for post dc instructions. Skin warm and dry integrity appears D/I. IV 20g to left ac intact. Presents healthy w/o s/s of infiltration or complaint. Abdomen soft and supple. pt offered toileting, denies need to urinate or defecate. No personal affects with patient. No Family bedside. Pt verbalizes understanding of POC. Currently w/o complaint of pain or need. ds/john
--- NOTE | 2020-01-02 16:35 | NUR ---
1635p RADIAL COMPRESSION REMOVAL NOTE: Initial Cuff volume 12 cc 1635p -2cc Removed No hematoma/bleeding noted with normal neurovascular function. 1645p -5cc Removed No hematoma/ bleeding noted with normal neurovascular function. 1700p -5cc Removed No hematoma/bleeding noted with normal neurovascular function. Air removal completed. Stasis achieved sterile 2x2,Tegaderm, Coban dressing No hematoma, bleeding noted with normal neurovascular function. Wrist splint in place. Pt instructed on POC. Ds/Rn
--- NOTE | 2020-01-02 17:15 | NUR ---
1715pm BALANCING MACHINE OPERATOR RECOVERY DISCHARGE NURSING NOTE Pt meets DC criteria. Rt Tr band site assessed for s/s of complication and presence of hematoma. Skin warm, dry, no discolor, and pulses present. IV removed from left ac. Distal tip appears intact. VS WNL. Pt denies pain, sob, or need at this time. Family at Review of discharge paperwork and follow up instructions. verbalized understanding. Pt to wheelchair and transported to front of hospital. Transferred to private vehicle under own strength w/o incident with DC paperwork in hand. - scar/sumeet
--- NOTE | 2020-02-14 10:09 | Operative Report ---
DATE OF PROCEDURE: 01/02/2020 SURGEON: Murphy Worley MD INDICATION FOR PROCEDURE: Chest pain, abnormal stress test. PREPROCEDURE ASSESSMENT: The risks, benefits, and alternatives of treatment explained to the patient prior to the procedure. The patient was deemed to be an appropriate candidate for moderate sedation. Informed consent was obtained and documented in the medical record. MEDICATIONS: Please see nursing notes for medications administered throughout the procedure. PROCEDURES PERFORMED: 1. Coronary angiography, right radial approach. 2. Left heart catheterization. PROCEDURE IN DETAIL: The patient was brought to the cardiac catheterization laboratory in a fasting state. Right wrist was prepped and draped in a sterile fashion. A 6-[place] Slender sheath was inserted in the right radial artery using modified Seldinger technique. Coronary angiography was performed using a 5-[place] Selena radial catheter to engage both the left and right coronary systems. This demonstrated patent LAD and right PLV stent with only [id number] plaquing, otherwise no further stenting was required. All catheters were removed over a wire. The site was closed using a TR band device. The patient tolerated the procedure well. There were no immediate complications. SIGNIFICANT FINDINGS: Left main large vessel, no significant CAD. LAD large vessel goes to the apex, one large diagonal branch. There is bifurcation stent in the LAD diagonal with 0% in-stent restenoses that are widely patent. There is 20% to 30% plaquing proximal to the previously placed stents in the LAD without significant obstruction. Left circumflex, nondominant vessel. One [id number] sized OM branch. No significant CAD. RCA, extremely large dominant RCA. There is 30% to 40% plaquing in the [id number] RCA. Large posterolateral branch with patent PLV stent. No significant obstructive CAD otherwise. GRAFTS AND IMPLANTS: None. SPECIMEN REMOVED: None. ESTIMATED BLOOD LOSS: 10 mL. COMPLICATIONS: None. FINAL RECOMMENDATIONS: 1. Continue dual antiplatelet therapy. 2. Follow up in clinic 2 weeks post procedure. Murphy Worley MD KVP/MODL /[id number]
== END | disposition home or self-care (01) ==
LOC: CATH LAB 14:51
PROVIDERS: ATTEND Internal Medicine
DX: I25.119 Atherosclerotic heart disease of native coronary artery with unspecified angina pectoris (principal); Z01.812 Encounter for preprocedural laboratory examination; I10 Essential (primary) hypertension; E78.5 Hyperlipidemia, unspecified; Z87.820 Personal history of traumatic brain injury; Z79.01 Long term (current) use of anticoagulants; Z79.82 Long term (current) use of aspirin
CPT/HCPCS: 36415; 80053; 85025; 85610; 93458; C1766; C1887; J1644; J2001; J2250; J3010; J7030; Q9967; 99152